=== PATIENT | female | born 2000 | race Two or more races ===

== ENCOUNTER → 2021-07-21 | Outpatient (CLI) | payer OTHER ==
[~2021-07-21] MED LIST: ISOVUE-370 76% 100ML VIAL As Ordered ONE
== END ==
LOC: M RADPRO 11:13
PROVIDERS: ATTEND Obstetrics & Gynecology
DX: N97.9 Female infertility, unspecified (principal)
CPT/HCPCS: 58340; 74740; Q9967

== ENCOUNTER 2021-07-31 20:20 | Emergency (ER) | payer OTHER ==
[~2021-07-31] VITALS: Ht 162.6 cm; Wt 65.7 kg
[2021-07-31 20:21] VITALS: BP 117/68
[2021-07-31] MEDS ORDERED: PSEUDOEPHEDRINE 30 MG TAB PO ONE (21:55)
== END 2021-07-31 22:45 | disposition home or self-care (01) ==
LOC: M ED 20:20
DX: J09.X9 Influenza due to identified novel influenza A virus with other manifestations (principal); E28.2 Polycystic ovarian syndrome; M41.9 Scoliosis, unspecified; M32.9 Systemic lupus erythematosus, unspecified